=== PATIENT | male | born 1960 | race Caucasian/White ===

== ENCOUNTER 2020-11-05 05:40 | Day surgery (SDC) | payer OTHER ==
[2020-11-05] MEDS ORDERED: PROTONIX40 MG PO (09:02)
== END 2020-11-05 10:00 | disposition home or self-care (01) ==
LOC: AMB-ENDOS 05:40
PROVIDERS: ATTEND Surgery
DX: D13.1 Benign neoplasm of stomach (principal); K44.9 Diaphragmatic hernia without obstruction or gangrene; Z20.828 Contact with and (suspected) exposure to other viral communicable diseases